=== PATIENT | female | born 1990 ===

== ENCOUNTER → 2018-06-25 | Outpatient (CLI) | payer OTHER ==
--- NOTE | 2018-06-25 11:04 | RAD ---
MRI Brain without contrast History: Worsening chronic headaches Technique: Multiplanar, multisequential noncontrast MR imaging was performed of the brain. Comparison: None Findings: There is some motion degradation. There is no evidence of recent infarct or cytotoxic edema. The ventricles, sulci, and cisterns are within normal limits in size and configuration. There is no significant midline shift, intraaxial mass effect, or focal abnormal extra-axial fluid collection. There is a very small focus of T2 and FLAIR hyperintense signal of the right frontal deep white matter. There is preservation of the major intracranial flow-voids at the skull base. The mastoid air cells are aerated. The cerebellar tonsils are normal in location. There is no significant abnormality of the pineal gland or pituitary gland. There is very minimal patchy ethmoid air cell mucosal thickening. There is more focal opacification/mucous retention cyst of posterior left ethmoid air cell about 0.7 cm. There is left reed bullosa. There is deviation of the nasal septum to the right. There is very mild maxillary sinus mucosal thickening. There are small right lateral sphenoid sinus mucous retention cyst about 0.6 cm. There is negligible frontal sinus mucosal thickening. There is slightly disconjugate gaze. There is preserved marrow signal of the clivus. Impression: 1. Other than a small focus of likely nonspecific gliosis of the right frontal deep white matter, there is no significant intracranial abnormality. 2. There is mild paranasal sinus mucosal thickening as stated. Electronically signed by: Martell Alvarez MD (06/25/2018 11:01 AM) [id number]
== END | disposition home or self-care (01) ==
LOC: MRI 09:13
PROVIDERS: ATTEND Psychiatry & Neurology Neurology with Special Qualifications in Child Neurology
DX: G43.009 Migraine without aura, not intractable, without status migrainosus (principal); J34.1 Cyst and mucocele of nose and nasal sinus; J34.2 Deviated nasal septum; J34.89 Other specified disorders of nose and nasal sinuses
CPT/HCPCS: 70551